=== PATIENT | female | born 1985 | race Caucasian/White ===

== ENCOUNTER 2021-03-04 15:53 | Outpatient (REF) | payer OTHER, SELFPAY ==
--- NOTE | ~2021-03-04 | XR_ITS ---
EXAMINATION: XR CLAVICLE, RIGHT CLINICAL INFORMATION: Trauma COMPARISON: None TECHNIQUE: Two views of the right clavicle. FINDINGS: Bone alignment is normal. No fracture or dislocation is seen. The joint spaces are normal. The soft tissues are normal XR/XR clavicle RT IMPRESSION: Normal right clavicle.
== END 2021-03-04 15:54 | disposition home or self-care (01) ==
LOC: HO.HMGCX 15:53
PROVIDERS: Visit Provider Physician Assistant Medical
DX: S49.91XD Unspecified injury of right shoulder and upper arm, subsequent encounter (principal)
CPT/HCPCS: 73000

== ENCOUNTER 2021-10-08 17:00 | Emergency (ER) | payer OTHER, SELFPAY ==
--- NOTE | ~2021-10-08 | XR_ITS ---
EXAMINATION: XR TIBIA AND FIBULA, LEFT CLINICAL INFORMATION: Pain. [place] tear in the mid lower leg. Leg COMPARISON: None TECHNIQUE: AP and lateral views of the left tibia and fibula were obtained. FINDINGS: The bones and soft tissues are normal. No fracture. No osseous lesions. XR/XR tibia fibula LT 2V IMPRESSION: Unremarkable left tibia and fibula.
--- NOTE | ~2021-10-08 | US_ITS ---
EXAMINATION: US VENOUS ULTRASOUND WITH DOPPLER LOWER EXTREMITY, LEFT CLINICAL INFORMATION: Left calf pain COMPARISON: None TECHNIQUE: Ultrasound of the deep veins is performed from the hip to the calf with compression sonography and color and pulse Doppler assessment. Spectral analysis with color-flow imaging is performed. FINDINGS: There is normal venous compression and respiratory variation and augmented flow. The visualized common femoral vein, superficial femoral vein, profunda femoral vein, popliteal vein, and the trifurcation region shows no evidence of deep venous thrombosis. The left peroneal vein is not adequately visualized. There is no significant popliteal fossa cyst. There is a complex fluid collection within the muscle fascia of the proximal to mid calf medially measuring approximately 8.9 x 2.5 x 3.8 cm. If the patient's symptoms persist, followup ultrasound in 5 days 7 days might be of value to exclude proximal propagation from a non-visualized calf vein. US/US venous duplex LE LT IMPRESSION: 1. No DVT demonstrated in the left lower extremity. 2. Complex fluid collection within the proximal to mid calf measuring up to 8.9 cm, which could represent hematoma in the setting of acute injury. If clinically warranted, this could be further assessed with MRI.
[2021-10-08 17:28] VITALS: BP 135/84; PULSE 83; RESP 18; TEMP 36.8; O2SAT 98; BMI 32.5
[2021-10-08] MEDS: Ibuprofen 600 MG TABLET PO (17:31)
--- NOTE | 2021-10-08 22:38 | ED_ITS ---
HPI - Extremity Injury (Lower) General Chief Complaint: Extremity Injury, Lower <GUZMAN Gay Last Filed: 10/09/21 02:00> Stated Complaint: leg pain - work injury <GUZMAN Gay Last Filed: 10/09/21 02:00> Time Seen by Provider: 10/08/21 22:38 <GUZMAN Gay Last Filed: 10/09/21 02:00> Source: patient <GUZMAN Gay Last Filed: 10/09/21 02:00> Mode of arrival: ambulatory <GUZMAN Gay Last Filed: 10/09/21 02:00> Limitations: no limitations <GUZMAN Gay Last Filed: 10/09/21 02:00> History of Present Illness HPI Narrative: 35-year-old female no significant medical history presents to the emerg ency department with work related injury with complaints of pain and swelling to the left lower extremity particularly behind her left calf. 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 Patient tells me that she has not been able to bear weight on that extremity, she also reports limited range of motion, she tells me that she feels like her extremity is cold, and has decreased sensation to the extremity. Patient is reporting severe 10/10 pain. Patient denies shortness of breath, nausea, vomiting, chest pain, weakness, fevers, chills. This injury occurred around 16:00. <GUZMAN Gay Last Filed: 10/09/21 02:00> MD complaint: other (Left calf pain) <GUZMAN Gay Last Filed: 10/09/21 02:00> Onset (ago): hour(s) (9) <GUZMAN Gay Last Filed: 10/09/21 02:00> Place: work <GUZMAN Gay Last Filed: 10/09/21 02:00> Severity: severe <GUZMAN Gay Last Filed: 10/09/21 02:00> Severity scale (1-10): >10 <GUZMAN Gay - Last Filed: 10/09/21 02:00> Relieving factors: nothing <GUZMAN Gay Last Filed: 10/09/21 02:00> Exacerbating factors: nothing <GUZMAN Gay Last Filed: 10/09/21 02:00> Context: running <GUZMAN Gay Last Filed: 10/09/21 02:00> Associated symptoms: snap/pop sensation <GUZMAN Gay Last Filed: 10/09/21 02:00> Other symptoms: none <GUZMAN Gay Last Filed: 10/09/21 02:00> Related Data Home Medications: Home Medications Medication Instructions Recorded Confirmed No Known Home Meds 03/04/21 03/04/21 <GUZMAN Gay Last Filed: 10/09/21 02:00> Allergies/Adverse Reactions: Allergies Allergy/AdvReac Type Severity Reaction Status Date / Time amoxicillin Allergy Hives Verified 03/04/21 15:43 <GUZMAN Gay Last Filed: 10/09/21 02:00> Review of Systems Review of Systems: Constitutional : No Weight loss, No Fever, No Chills, No Fatigue, No Malaise ENT/Mouth : No sore throat, No Rhinorrhea Eyes: No Eye Pain, No Swelling, No Redness Cardiovascular : No Chest Pain, No SOB, No Dyspnea on Exertion, No Orthopnea, No Edema, No Palpitations Respiratory : No Cough, No Sputum, No Wheezing Gastrointestinal : No Nausea, No Vomiting, No Diarrhea, No Constipation, No abdominal Pain, No Hematochezia, No Melena Genitourinary : No Dysuria, No Urinary Frequency, No Hematuria, Musculoskeletal : No joint pain, No Myalgias, No Joint Swelling,+ extremity pain, + extremity swelling Skin : No Skin Lesions, No rash Neuro : No Weakness, No Numbness, No Dizziness, No Headache Psych : No Anxiety/Panic, No Depression All other systems reviewed and are negative <GUZMAN Gay Last Filed: 10/09/21 02:00> Yes all other systems are reviewed and are negative <GUZMAN Gay - Last Filed: 10/09/21 02:00> [facility] Past Medical History Attestation statement: The following information was validated with the patient. <GUZMAN Gay - Last Filed: 10/09/21 02:00> Source: old records reviewed and nursing notes reviewed <GUZMAN Gay - Last Filed: 10/09/21 02:00> Social History Social History: Social History Advance Directives: No Advance Directives Information Provided: No <GUZMAN Gay - Last Filed: 10/09/21 02:00> Physical Exam Vital Signs: Vital Signs: Last Vital Signs Temp 98.2 F 10/09/21 02:29 Pulse 65 10/09/21 02:29 Resp 16 10/09/21 02:29 BP 124/78 10/09/21 02:29 Pulse Ox 98 10/09/21 02:29 BMI result Body Mass Index 32.5 Vital signs stable <GUZMAN Gay - Last Filed: 10/09/21 02:00> Vital Signs: Last Vital Signs Temp 98.2 F 10/09/21 02:29 Pulse 65 10/09/21 02:29 Resp 16 10/09/21 02:29 BP 124/78 10/09/21 02:29 Pulse Ox 98 10/09/21 02:29 BMI result Body Mass Index 32.5 <Kevon Real MD - Last Filed: 10/09/21 02:47> Appearance: Alert.? Oriented X3.? No acute distress.? Head: Normocephalic, atraumatic, no step-offs or deformities Eyes: Pupils equal, round and reactive to light.? ENT: Pharynx normal.? Neck: Normal inspection.? Neck supple.? CVS: Normal heart rate and rhythm.? Pulses normal.? Respiratory: No respiratory distress.? Breath sounds normal.? Abdomen: Soft and nontender.? Skin: Skin warm and dry.? Normal skin color.? Normal skin turgor.? Extremities: No lower extremity edema.? + calf tenderness to the left lower extremity, negative on the right. 5/5 strength to bilateral upper extremities, 5/5 strength the right lower extremity, unable to assess strength to left lower extremity as patient is reporting severe pain. Decreased range of motion to the left lower extremity due to pain. Patient tells me she is not able to flex or extend on her own, she is able digit with help however extremely painful. Left lower extremity feels cold to the touch, decreased sensation to the left lower extremity. Normal right lower extremity. 2+ dorsalis pedis and posterior tibialis pulses equal bilateral. Less than 2nd capillary refill to all toes. Normal soft compartments particularly superficial posterior gastronemius to b/l calfs. Back: No midline tenderness, no C-spine tenderness, full range of motion, no CVA tenderness bilaterally Neuro: Oriented X 3.? No motor deficit.? No sensory deficit. CN 2-12 intact <GUZMAN Gay - Last Filed: 10/09/21 02:00> Course Reevaluation(s) Reevaluation #1: X-ray of the left tibia and fibula within normal limits. X-ray of the left lower extremity with no DVT in the left lower extremity there is a complex fluid collection with in the proximal to mid calf measuring up to 8.9 cm which could represent hematoma in the setting of acute injury. They recommend MRI. Based off history and physical examination very low suspicion for arterial occlusion or compartment syndrome at this time. <GUZMAN Gay - Last Filed: 10/09/21 02:00> Time: 00:35 <GUZMAN Gay - Last Filed: 10/09/21 02:00> Reevaluation #2: Discuss this case with my attending who also evlauated patient at the bedside also agrees that unlikely that this is arterial occlusion agrees that this is likely a gastrocnemius tear, patient will be placed in a walking boot and will be given crutches. Advised her to follow-up with orthopedics and schedule an appointment tomorrow. I also advised her to follow-up with the were connection at this was a work related injury and provided her with information. Educated patient on worrisome signs and symptoms, educated her on worrisome signs and symptoms related to compartment syndrome and or blood clots. At this time I feel comfortable with discharge home with PCP, orthopedic and work connection prompt follow-up. At time of discharge patient is much more comfortable, pain is well controlled with Toradol, her left lower extremity is warmer than it was when she arrived. Patient moving all her toes continues to have 2+ posterior tibialis, dorsalis pedis pulses as well as popliteal pulses equal bilateral. At this time I feel comfortable discharge home likely diagnosis is gastric knee medius tear. Advised her to call Orthopedics tomorrow to schedule a follow-up appointment. Comfortable discharge home <GUZMAN Gay - Last Filed: 10/09/21 02:00> Time: 01:57 <GUZMAN Gay - Last Filed: 10/09/21 02:00> MDM - Extremity Injury (Lower) MDM Narrative Medical decision making narrative: 0033 35-year-old female presents with a work-related injury she reports pain, swelling, to left lower extremity and she has noted that it has become cold to the touch as time progressed. Patient reports pain with range of motion, inability to bear weight on the left lower extremity. Physical examination significant for calf tenderness to the left lower extremity, negative on the right. 5/5 strength to bilateral upper extremities, 5/5 strength the right lower extremity, unable to assess strength to left lower extremity as patient is reporting severe pain. Decreased range of motion to the left lower extremity due to pain. Patient tells me she is not able to flex or extend on her own, she is able digit with help however extremely painful. Left lower extremity feels cold to the touch, decreased sensation to the left lower extremity. Normal right lower extremity. 2+ dorsalis pedis and posterior tibialis pulses equal bilateral. Less than 2nd capillary refill to all toes .Negative hernandez b/l. Based off history and physical examination will rule out DVT, hematoma. Based off patient history and physical exam unlikely that this is an arterial occlusion. HX and pe concerning for gastronemious muscle tear. Plan at this time is to obtain imaging, give pain medicine. <GUZMAN Gay - Last Filed: 10/09/21 02:00> 0033 35-year-old female presents with a work-related injury she reports pain, swelling, to left lower extremity and she has noted that it has become cold to the touch as time progressed. Patient reports pain with range of motion, inability to bear weight on the left lower extremity. Physical examination significant for calf tenderness to the left lower extremity, negative on the right. 5/5 strength to bilateral upper extremities, 5/5 strength the right lower extremity, unable to assess strength to left lower extremity as patient is reporting severe pain. Decreased range of motion to the left lower extremity due to pain. Patient tells me she is not able to flex or extend on her own, she is able digit with help however extremely painful. Left lower extremity feels cold to the touch, decreased sensation to the left lower extremity. Normal right lower extremity. 2+ dorsalis pedis and posterior tibialis pulses equal bilateral. Less than 2nd capillary refill to all toes.Negative hernandez b/l. Based off history and physical examination will rule out DVT, hematoma. Based off patient history and physical exam unlikely that this is an arterial occlusion. HX and pe concerning for gastronemious muscle tear. Plan at this time is to obtain imaging, give pain medicine. Attending: Patient was seen evaluated [id number] by me. History and physical consistent with a gastrocnemius muscle tear. Patient without any evidence of vascular compromise <Kevon Real MD - Last Filed: 10/09/21 02:47> Medical Records Attestation: I reviewed the patient's medical records. <GUZMAN Gay - Last Filed: 10/09/21 02:00> Lab Data Attestation: I reviewed the patient's lab results. <GUZMAN Gay - Last Filed: 10/09/21 02:00> Critical Care Time Critical Care Time Critical Care Time: No <GUZMAN Gay - Last Filed: 10/09/21 02:00> Discharge Plan Discharge Clinical Impression: Gastrocnemius muscle rupture, Hematoma <GUZMAN Gay - Last Filed: 10/09/21 02:00> Patient Disposition: Home, Self-Care <GUZMAN Gay - Last Filed: 10/09/21 02:00> Additional Instructions: Take your medications as prescribed. Follow-up with your primary care provider this week. Call tomorrow to schedule an appointment with orthopedics. As this was a work related injury you should also schedule an appointment with the were connection. You will likely require an MRI to further evaluate this injury. Apply ice to the injured area 4 times per day for 20 minutes at a time until swelling subsides. You can take ibuprofen every 6 hours, Tylenol every 4 as needed for pain or discomfort. It is also recommended that you wear compression sleeves over the calf to help decrease hematoma formation. You were given a walking boot as well as crutches for comfort. Return to the emergency department with new or worsening symptoms. Such as fevers, chills, chest pain, shortness of breath, nausea, vomiting, dizziness, headache, vision changes, lethargy In case of emergency call 911 I have educated you on signs and symptoms of compartment syndrome and or blood clots, if you develops severe pain, loss of sensation completely, severe swelling, shortness of breath, chest pain or new or worsening symptoms you must return emergently to the emergency department. US/US venous duplex LE LT IMPRESSION: 1.? No DVT demonstrated in the left lower extremity. 2.? Complex fluid collection within the proximal to mid calf measuring up to 8.9 cm, which could represent hematoma in the setting of acute injury. If clinically warranted, this could be further assessed with MRI. XR/XR tibia fibula LT 2V IMPRESSION: Unremarkable left tibia and fibula. ? Work connection: [phone] <GUZMAN Gay - Last Filed: 10/09/21 02:00> Referrals: [facility] [place] [facility] Orthopedic Surgeons [Provider Group] - 1 day Physician,None [Primary Care Provider] - 2 days <GUZMAN Gay - Last Filed: 10/09/21 02:00> Stand Alone Forms: Work/School Release <GUZMAN Gay - Last Filed: 10/09/21 02:00>
--- NOTE | 2021-10-08 23:32 | PC.NURSE ---
pt able to transfer to bed from unassisted. hesitates to put weight on LLE. LEG DOES not appear swollen but is cooler than right. still has brisk cap refill and palpable pedal pulse./
[2021-10-09 00:26] VITALS: BP 130/87; PULSE 82; RESP 18; O2SAT 98
[2021-10-09] MEDS: Ketorolac Tromethamine 15 MG/ML VIAL 30 MG IM (01:01)
[2021-10-09 02:29] VITALS: BP 124/78; PULSE 65; RESP 16; TEMP 36.8; O2SAT 98
== END 2021-10-09 03:04 | disposition home or self-care (01) ==
PROVIDERS: Emergency Provider Emergency Medicine
DX: S86.112A Strain of other muscle(s) and tendon(s) of posterior muscle group at lower leg level, left leg, initial encounter (principal); S80.12XA Contusion of left lower leg, initial encounter; M79.605 Pain in left leg; X58.XXXA Exposure to other specified factors, initial encounter; Y93.02 Activity, running; Y92.219 Unspecified school as the place of occurrence of the external cause; Y99.8 Other external cause status
CPT/HCPCS: 73590; 93971; 96372; 99283; 99284; J1885

== ENCOUNTER → 2021-10-12 12:45 | Outpatient (BNVA) | payer OTHER, SELFPAY | PROVIDERS: Visit Provider Physician Assistant Medical | DX: S86.112A Strain of other muscle(s) and tendon(s) of posterior muscle group at lower leg level, left leg, initial encounter (principal); Y93.02 Activity, running | CPT/HCPCS: 99203 ==

== ENCOUNTER → 2021-10-15 12:34 | Outpatient (BNVA) | payer OTHER, SELFPAY | PROVIDERS: Visit Provider Physician Assistant | DX: S86.119A Strain of other muscle(s) and tendon(s) of posterior muscle group at lower leg level, unspecified leg, initial encounter (principal); S36.32XA Contusion of stomach, initial encounter | CPT/HCPCS: 99202 ==

== ENCOUNTER → 2021-11-05 10:55 | Outpatient (BNVA) | payer OTHER, SELFPAY | PROVIDERS: Visit Provider Physician Assistant | DX: S86.119D Strain of other muscle(s) and tendon(s) of posterior muscle group at lower leg level, unspecified leg, subsequent encounter (principal); S80.12XD Contusion of left lower leg, subsequent encounter | CPT/HCPCS: 99212 ==

== ENCOUNTER 2021-11-30 11:00 | Outpatient (RCR) | payer OTHER, SELFPAY ==
--- NOTE | 2021-11-11 13:43 | MHC.PT.EP ---
[facility] [place] Office [place] Office [place] Office [address] [phone] F: [phone] F: [phone] F: [phone] F: [phone] Physical Therapy Plan of Care Date of Evaluation: Date of Surgery: Diagnosis: This is a 36 yo female presenting to skilled PT with a script for L leg injury. Assessment: This is a 36 yo female presenting to skilled PT with a script for L leg injury. 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 She did not have pain initially but states that it felt like when your leg falls asleep and she could not run again. She went to the ED and sat for a while waiting to be seen, when she got up she started to have an increase in pain. She is being followed by [facility] ortho, returns end of November. She has been wearing a walking boot since then, attempts to walk without this at home but this is hard due to patient reporting it feels weird . Today she reports no real pain (unless she is DFing or walking) but states that it just feels gross. Assessment reveals pain that ranges up to a 6/10. She demos decreased ankle ROM, decreased hip and ankle strength, impaired gait pattern with and without the boot, impaired ankle joint mobility as well as gross functional decline with gait pattern, normal ADLs. She is a good candidate for skilled PT 2x/wk for 5wks. Frequency and Duration: The patient will be seen 2x/wk for 5wks Short Term Goals: I with HEP Improve ankle AROM DF to at least 5 degs Longterm Goals: Improve ankle strength to at least 5/5 Normalize ankle ROM Normalize gait pattern without boot Improve pain with movement to no more than a 2/10 Treatment Plan: Modalities to reduce pain, spasms and effusion. Manual therapy to restore motion and function. Therapeutic exercise to improve strength and flexibility. Neuromuscular re-education for posture and balance. Therapeutic activities to return to functional activities of daily living. Electronically signed by: Kasandra Bagley PT Please sign and return to therapist. Thank you for your referral.
--- NOTE | 2021-12-07 16:43 | MHC.PT.DC ---
[facility] [place] Office [place] Office [place] Office [address] [phone] F: [phone] F: [phone] F: [phone] F: [phone] Physical Therapy Discharge Report Diagnosis: This is a 36 yo female presenting to skilled PT with a script for L leg injury. Date of Surgery: Date of Evaluation: 11/11/21 Date of Discharge: 12/07/21 Treatments to Date: 5 Cancellations to Date: 2 No Shows to Date: 2 Discharge Status: Patient Elected to Stop Discharge Summary: Patient DC'd herself. Improved ROM, balance and strength. She has a thorough HEP to continue on her own. Educated on importance of continuing exercises for antalgic gait. DC to HEP Electronically signed by: Kasandra Bagley PT Please sign and return to therapist. Thank you for your referral.
== END 2021-12-07 16:43 | disposition home or self-care (01) ==
LOC: HO.PTCHIC 11:00
PROVIDERS: Visit Provider Physician Assistant
DX: S86.112A Strain of other muscle(s) and tendon(s) of posterior muscle group at lower leg level, left leg, initial encounter (principal); T14.8XXA Other injury of unspecified body region, initial encounter
CPT/HCPCS: 97110; 97140; 97162

== ENCOUNTER → 2021-12-04 13:04 | Outpatient (BNVA) | payer OTHER, SELFPAY | PROVIDERS: Visit Provider Physician Assistant | DX: S86.112A Strain of other muscle(s) and tendon(s) of posterior muscle group at lower leg level, left leg, initial encounter (principal); T14.8XXA Other injury of unspecified body region, initial encounter | CPT/HCPCS: 99212 ==

== ENCOUNTER → 2023-10-19 12:23 | Outpatient (BNVA) | payer OTHER, SELFPAY | PROVIDERS: Visit Provider Registered Nurse | DX: S20.212A Contusion of left front wall of thorax, initial encounter (principal); W07.XXXA Fall from chair, initial encounter | CPT/HCPCS: 71101; 99203 ==

== ENCOUNTER 2024-09-24 18:36 | Emergency (ER) | payer SELFPAY ==
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
[2024-09-24 18:46] VITALS: BP 118/82; PULSE 63; O2SAT 98
[2024-09-24 18:48] VITALS: BP 138/91; PULSE 72; RESP 16; TEMP 36.3; O2SAT 97; BMI 31.2
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
[2024-09-24] MEDS: oxyCODONE HCl Immed Release 5 MG TABLET PO (19:34)
[2024-09-24] MEDS: Acetaminophen 325 MG TABLET 975 MG PO (19:34)
[2024-09-24] MEDS: dexAMETHasone 2 MG TABLET 10 MG PO (19:35)
[2024-09-24] MEDS: Ketorolac Tromethamine 15 MG/ML VIAL IM (19:35)
[2024-09-24 21:20] VITALS: BP 126/78; PULSE 60; RESP 17; TEMP 36.6; O2SAT 98
== END 2024-09-24 21:22 | disposition home or self-care (01) ==
PROVIDERS: Emergency Provider Emergency Medicine
DX: S13.4XXA Sprain of ligaments of cervical spine, initial encounter (principal); V43.52XA Car driver injured in collision with other type car in traffic accident, initial encounter; M25.532 Pain in left wrist; Y93.89 Activity, other specified; Y92.414 Local residential or business street as the place of occurrence of the external cause; Y99.9 Unspecified external cause status
CPT/HCPCS: 72125; 73110; 96372; 99284; J1885; J8540

== ENCOUNTER → 2024-09-24 19:00 | Outpatient (BNV) | payer SELFPAY | PROVIDERS: Emergency Provider Emergency Medicine; Visit Provider Radiology Diagnostic Radiology | DX: M54.2 Cervicalgia (principal); M25.532 Pain in left wrist | CPT/HCPCS: 72125; 73110 ==